=== PATIENT | male | born 1970 | race Caucasian/White ===

== ENCOUNTER 2017-08-28 05:34 | Emergency (ER) | payer BC ==
[~2017-08-28] VITALS: Ht 182.9 cm; Wt 95.0 kg
[2017-08-28 05:37] VITALS: BP 156/73; PULSE 62; RESP 16; TEMP 97.7; O2SAT 99
[2017-08-28] MEDS ORDERED: SIMV20TA PO (06:04)
[2017-08-28] MEDS ORDERED: METO-309 PO (06:04)
[2017-08-28] MEDS ORDERED: TELM40 PO (06:04)
[2017-08-28] MEDS ORDERED: NEXI40CA PO (06:05)
[2017-08-28] MEDS ORDERED: LEXA10TA PO (06:05)
[2017-08-28] MEDS ORDERED: SODIUM CHLOR 0.9% 1000 ML INJ 1,000 ML IV ONE (07:00)
[2017-08-28] MEDS ORDERED: KETOROLAC TROMETHAMINE 30 MG/ML (IVP) VIAL IV PUSH ONE (07:00)
[2017-08-28 07:23] LABS: BILIRUBIN, URINE NEG (NEG); BLOOD, URINE MOD (NEG); GLUCOSE,URINE NEG (NEG); KETONE, URINE NEG (NEG); MUCUS URINE MOD /lpf (OCC); NITRITE,URINE NEG (NEG); URINE COLOR YELLOW (YELLW/STRAW); URINE LEUKOCYTE ESTERASE NEG (NEG)
--- NOTE | 2017-08-28 07:23 | PD ---
HPI Chief Complaint: Flank/Kidney Pain Time Seen by Provider: 06:01 Travel History International Travel<30 days: No Contact w/Intl Traveler<30days: No Traveled to known affect area: No History of Present Illness HPI The patient is a 47 year old male who presents to the [facility] emergency department with a history of right flank pain first occurred 2 nights ago. He reports that it woke him from sound sleep and then resolved after 3 hours. This evening again at 12:30 AM he awoke from sound sleep with the same pain on the right side. He reports that it feels like he has a stitch in his side. He reports that the pain is been constant since 1230. He denies having any nausea , vomiting, or diarrhea associated with this. He last moved his bowels today. He denies having any blood in his stool or black or tarry stools. He denies having any dysuria, hematuria, urinary urgency, or frequency. He denies any prior history of kidney stones. He denies having any radiation of the pain. The patient is visiting from out of town. The patient incidentally reports a nearly 100 pound weight loss since April. The patient denies having any fatty food intolerance. He denies having any abdominal pain. He reports that his last meal was at 6:30 PM. On review Review of systems otherwise, the patient denies having any known recent fevers, cough or congestion, neck pain, chest pain, shortness of breath, abdominal pain, or neurologic symptoms. [facility] Past Medical History Narrative Medical The patient's past medical history is significant for hypertension. Past Surgical History Narrative Surgical The patient's past surgical history is unremarkable. Social History Alcohol Use: No Tobacco Use: No Substance Use: No Allergies-Medications (Allergen,Severity, Reaction): Coded Allergies: No Known Allergies (Unverified , 08/28/17) Reported Meds & Prescriptions Reported Meds & Active Scripts Active Reported Nexium (Esomeprazole DR) 40 Mg Capdr 40 Mg PO DAILY Lexapro (Escitalopram Oxalate) 10 Mg Tab 10 Mg PO DAILY Simvastatin 20 Mg Tab 20 Mg PO DAILY Micardis (Telmisartan) 40 Mg Tab 40 Mg PO DAILY Lopressor (Metoprolol Tartrate) 50 Mg Tab 50 Mg PO BID Review of Systems Except as stated in HPI: all other systems reviewed are Neg General / Constitutional: No: Fever Eyes: No: Visual changes HENT: No: Headaches Cardiovascular: No: Chest Pain or Discomfort Respiratory: No: Shortness of Breath Gastrointestinal: No: Abdominal Pain Genitourinary: Positive: Flank Pain, No: Dysuria Musculoskeletal: No: Pain Skin: No Rash Neurologic: No: Weakness Psychiatric: No: Depression Endocrine: No: Polydipsia Hematologic/Lymphatic: No: Easy Bruising Physical Exam Narrative General: The patient is a well-developed well-nourished male no acute distress. Head and Neck exam: Head is normocephalic atraumatic. Eyes: EOMI, pupils are equal round and reactive to light. Nose: Midline septum with pink mucous membranes Mouth: Dentition unremarkable. Moist mucus membranes. Posterior oropharynx is not erythematous. No tonsillar hypertrophy. Uvula midline. Airway patent. Neck: No palpable lymphadenopathy. No nuchal rigidity. No thyromegaly. Cardiovascular: Regular rate and rhythm without murmurs, gallops, or rubs. Lungs: Clear to auscultation bilaterally. No wheezes, rhonchi, or rales. Abdomen: Soft, without tenderness to palpation in all 4 quadrants of the abdomen. No guarding, rebound, or rigidity. Normal bowel sounds are audible. No tenderness on palpation of McBurney's point. Negative Coy sign. Urphys sign. Extremities: No clubbing, cyanosis, or edema. 2+ pulses in all 4 extremities. Back: No spinous process tenderness to palpation. Right-sided CVA tenderness on palpation. Neurologic Exam: Grossly nonfocal. Skin Exam: No rash noted. Intact skin that is warm and dry. Data Data Last Documented VS Vital Signs Date Time Temp Pulse Resp B/P (MAP) Pulse Ox O2 Delivery O2 Flow Rate FiO2 08/28/17 05:37 97.7 62 16 156/73 (100) 99 Orders Orders Complete Blood Count With Diff (08/28/17 06:21) Comprehensive Metabolic Panel (08/28/17 06:21) Lipase (08/28/17 06:21) Urinalysis - C+S If Indicated (08/28/17 06:21) Magnesium (Mg) (08/28/17 06:21) Iv Access Insert/Monitor (08/28/17 06:21) Ecg Monitoring (08/28/17 06:21) Oximetry (08/28/17 06:21) Ct Abd/Pel W/O Iv Contrast (08/28/17 06:54) Sodium Chlor 0.9% 1000 Ml Inj (Ns 1000 M (08/28/17 07:00) Ketorolac Inj (Toradol Inj) (08/28/17 07:00) Labs Laboratory Tests Test 08/28/17 06:30 White Blood Count 7.6 TH/MM3 Red Blood Count 4.13 MIL/MM3 Hemoglobin 11.3 GM/DL Hematocrit 34.3 % Mean Corpuscular Volume 83.0 FL Mean Corpuscular Hemoglobin 27.3 PG Mean Corpuscular Hemoglobin Concent 32.9 % Red Cell Distribution Width 15.9 % Platelet Count 241 TH/MM3 Mean Platelet Volume 8.8 FL Neutrophils (%) (Auto) 50.7 % Lymphocytes (%) (Auto) 38.3 % Monocytes (%) (Auto) 8.7 % Eosinophils (%) (Auto) 1.6 % Basophils (%) (Auto) 0.7 % Neutrophils # (Auto) 3.9 TH/MM3 Lymphocytes # (Auto) 2.9 TH/MM3 Monocytes # (Auto) 0.7 TH/MM3 Eosinophils # (Auto) 0.1 TH/MM3 Basophils # (Auto) 0.1 TH/MM3 CBC Comment DIFF FINAL Differential Comment Urine Color YELLOW Urine Turbidity HAZY Urine pH 5.0 Urine Specific [place] 1.030 Urine Protein 30 mg/dL Urine Glucose (UA) NEG mg/dL Urine Ketones NEG mg/dL Urine Occult Blood MOD Urine Nitrite NEG Urine Bilirubin NEG Urine Urobilinogen 4.0 OR GREATER mg/dL Urine Leukocyte Esterase NEG Urine RBC 65 /hpf Urine WBC 1 /hpf Urine Mucus MOD /lpf Microscopic Urinalysis Comment CULT NOT INDICATED Blood Urea Nitrogen 9 MG/DL Creatinine 0.85 MG/DL Random Glucose 108 MG/DL Total Protein 7.0 GM/DL Albumin 3.4 GM/DL Calcium Level 8.4 MG/DL Magnesium Level 2.2 MG/DL Alkaline Phosphatase 70 U/L Aspartate Amino Transf (AST/SGOT) 27 U/L Alanine Aminotransferase (ALT/SGPT) 20 U/L Total Bilirubin 0.2 MG/DL Sodium Level 144 MEQ/L Potassium Level 3.5 MEQ/L Chloride Level 111 MEQ/L Carbon Dioxide Level 23.7 MEQ/L Anion Gap 9 MEQ/L Estimat Glomerular Filtration Rate 96 ML/MIN Lipase 139 U/L MDM Medical Decision Making Medical Screen Exam Complete: Yes Emergency Medical Condition: Yes Medical Record Reviewed: Yes Differential Diagnosis Kidney stone, versus pyelonephritis, versus musculoskeletal strain Narrative Course During the course of the patient's emergency department visit, the patient's history, examination, and differential diagnosis were reviewed with the patient. The patient was placed on a radiation monitor with oximetry and frequent blood pressure monitoring. The patient had IV access obtained and blood work sent for analysis. The patient was initially provided Normal saline 1 L IV fluid bolus, Toradol 15 mg IV for pain. The patient's laboratory studies were reviewed and remarkable for 08/28/17 06:30 Total Protein 7.0, Albumin 3.4, Calcium Level 8.4 L, Magnesium Level 2.2, Alkaline Phosphatase 70, Aspartate Amino Transf (AST/SGOT) 27, Alanine Aminotransferase (ALT/SGPT) 20, Total Bilirubin 0.2 Urinalysis shows moderate occult blood, 30 protein, 4 urobilinogen, 65 RBCs, this is suspicious for an underlying kidney stone. The patient on reexamination reports improvement in his pain. The patient CT scan of the abdomen and pelvis was pending at the conclusion of my shift. The patient's case was checked out to the oncoming emergency physician to disposition the patient based on the conclusion of his workup. Diagnosis Primary Impression: Right flank pain Medina Coronel MD Aug 28, 2017 07:23
--- NOTE | 2017-08-28 08:01 | RADRPT ---
EXAM DATE: 08/28/2017 7:54 AM EDT AGE/SEX: 47 years / Male INDICATIONS: Right flank pain for two days. CLINICAL DATA: This is the patient's initial encounter. Patient reports that signs and symptoms have been present for 2 days and indicates a pain score of 6/10. MEDICAL/SURGICAL HISTORY: Hypertension. None. RADIATION DOSE: 18.42 CTDI (mGy) COMPARISON: No prior exams available for comparison. No external comparison. TECHNIQUE: Multiple contiguous axial images were obtained through the abdomen. Images were obtained using multiple row detector helical technique. Using automated exposure control and adjustment of the mA and/or kV according to patient size, radiation dose was kept as low as reasonably achievable to o btain optimal diagnostic quality images. DICOM format image data is available electronically for rev iew and comparison. FINDINGS: LOWER LUNGS: The visualized lower lungs are clear. LIVER: The liver has a homogeneous density without space-occupying lesion. There is no dilation of t he biliary tree. SPLEEN: Homogeneous density without enlargement. PANCREAS: Unremarkable without mass or calcification. KIDNEYS: There is moderate right-sided hydronephrosis and hydroureter extending to a 7 x 5 mm UVJ ca lcified calculus. No additional radiopaque renal calculi are demonstrated. There is a 2.4 cm cyst in the superior pole the left kidney. ADRENAL GLANDS: Unremarkable. AORTA: Mis-aneurysmal. BOWEL/MESENTERY: Mild sigmoid diverticulosis. Bowel otherwise appears unremarkable without evidence for obstruction. No free fluid or drainable fluid collections. No free air. ABDOMINAL WALL: Intact. RETROPERITONEUM: No evidence of adenopathy in the retrocrural, para-aortic, or deep pelvic regions. BLADDER: No bladder calculi. REPRODUCTIVE: No abnormal masses or calcifications seen. BONY STRUCTURES: Mild degenerative spondylosis of the lower lumbar spine. CONCLUSION: 1. 7 x 5 mm right UVJ calcified calculus with resultant moderate right-sided hydroureteronephrosis. Electronically signed by: Salvatore Cruz MD 08/28/2017 8:00 AM EDT
[2017-08-28 08:22] LABS: AUTOMATED NEUTROPHIL # 9.6 TH/MM3 (1.8-7.7); BASOPHIL # 0.1 TH/MM3 (0-0.2); BASOPHIL % 0.4 % (0.0-2.0); EOSINOPHIL # 0.1 TH/MM3 (0-0.4); EOSINOPHIL % 0.9 % (0.0-4.0); HEMOGLOBIN 13.6 GM/DL (13.0-17.0); LYMPH % 10.9 % (9.0-44.0); LYMPHOCYTE # 1.3 TH/MM3 (1.0-4.8); MEAN CELL VOLUME 89.4 FL (80.0-100.0); MEAN CORPUSCULAR HEMOGLOBIN 29.6 PG (27.0-34.0); MEAN CORPUSCULAR HGB CONC 33.1 % (32.0-36.0); MEAN PLATELET VOLUME 8.5 FL (7.0-11.0); MONO % 5.9 % (0.0-8.0); MONOCYTE # 0.7 TH/MM3 (0-0.9); NEUT % 81.9 % (16.0-70.0); PLATELET COUNT 237 TH/MM3 (150-450); RED BLOOD COUNT 4.59 MIL/MM3 (4.50-5.90); RED CELL DISTRIBUTION WIDTH 13.2 % (11.6-17.2); WHITE BLOOD COUNT 11.8 TH/MM3 (4.0-11.0)
[2017-08-28] MEDS ORDERED: TAMS5CAP PO (08:26)
[2017-08-28] MEDS ORDERED: PERC5TAB12 PO (08:26)
[2017-08-28] MEDS ORDERED: IBUP-232 PO (08:26)
--- NOTE | 2017-08-28 08:26 | PD ---
Physical Exam Date Seen by Provider: Aug 28, 2017 Data Data Last Documented VS Vital Signs Date Time Temp Pulse Resp B/P (MAP) Pulse Ox O2 Delivery O2 Flow Rate FiO2 08/28/17 05:37 97.7 62 16 156/73 (100) 99 Orders Orders Complete Blood Count With Diff (08/28/17 06:21) Comprehensive Metabolic Panel (08/28/17 06:21) Lipase (08/28/17 06:21) Urinalysis - C+S If Indicated (08/28/17 06:21) Magnesium (Mg) (08/28/17 06:21) Iv Access Insert/Monitor (08/28/17 06:21) Ecg Monitoring (08/28/17 06:21) Oximetry (08/28/17 06:21) Ct Abd/Pel W/O Iv Contrast (08/28/17 06:54) Sodium Chlor 0.9% 1000 Ml Inj (Ns 1000 M (08/28/17 07:00) Ketorolac Inj (Toradol Inj) (08/28/17 07:00) Complete Blood Count With Diff (08/28/17 08:01) Comprehensive Metabolic Panel (08/28/17 08:01) Strain Urine PRN (08/28/17 08:23) Labs Laboratory Tests Test 08/28/17 06:30 White Blood Count 11.8 TH/MM3 Red Blood Count 4.59 MIL/MM3 Hemoglobin 13.6 GM/DL Hematocrit 41.0 % Mean Corpuscular Volume 89.4 FL Mean Corpuscular Hemoglobin 29.6 PG Mean Corpuscular Hemoglobin Concent 33.1 % Red Cell Distribution Width 13.2 % Platelet Count 237 TH/MM3 Mean Platelet Volume 8.5 FL Neutrophils (%) (Auto) 81.9 % Lymphocytes (%) (Auto) 10.9 % Monocytes (%) (Auto) 5.9 % Eosinophils (%) (Auto) 0.9 % Basophils (%) (Auto) 0.4 % Neutrophils # (Auto) 9.6 TH/MM3 Lymphocytes # (Auto) 1.3 TH/MM3 Monocytes # (Auto) 0.7 TH/MM3 Eosinophils # (Auto) 0.1 TH/MM3 Basophils # (Auto) 0.1 TH/MM3 CBC Comment DIFF FINAL Differential Comment Urine Color YELLOW Urine Turbidity HAZY Urine pH 5.0 Urine Specific [place] 1.030 Urine Protein 30 mg/dL Urine Glucose (UA) NEG mg/dL Urine Ketones NEG mg/dL Urine Occult Blood MOD Urine Nitrite NEG Urine Bilirubin NEG Urine Urobilinogen 4.0 OR GREATER mg/dL Urine Leukocyte Esterase NEG Urine RBC 65 /hpf Urine WBC 1 /hpf Urine Mucus MOD /lpf Microscopic Urinalysis Comment CULT NOT INDICATED Blood Urea Nitrogen 23 MG/DL Creatinine 1.43 MG/DL Random Glucose 107 MG/DL Total Protein 6.7 GM/DL Albumin 3.6 GM/DL Calcium Level 9.0 MG/DL Alkaline Phosphatase 57 U/L Aspartate Amino Transf (AST/SGOT) 13 U/L Alanine Aminotransferase (ALT/SGPT) 28 U/L Total Bilirubin 0.4 MG/DL Sodium Level 143 MEQ/L Potassium Level 3.8 MEQ/L Chloride Level 107 MEQ/L Carbon Dioxide Level 27.7 MEQ/L Anion Gap 8 MEQ/L Estimat Glomerular Filtration Rate 53 ML/MIN MDM Medical Record Reviewed: Yes Supervised Visit with DIMITRIS: No Narrative Course Patient was received in signout by Dr. Coronel at change of shift, patient pending lab work as well as CT the abdomen pelvis Patient is a 47-year-old male presents the emergency room with complaints of right-sided flank pain which has been intermittent in nature and has been going on for the past 2 days. Patient reports that last night, this flank pain woke him up from sleep. Patient denies any nausea or vomiting with his pain, denies any hematuria, dysuria, urinary urgency or frequency. Patient reports that he is here on vacation and is going home on . On physical exam, patient does have right-sided flank pain, overall, he is well- appearing and has relieved the pain at this time. He was given a dose of Toradol for pain which relieved his symptoms UA: Positive for moderate blood, 65 red blood cells, moderate mucus Last Impressions Abdomen/Pelvis CT 08/28/17 0654 Signed Impressions: CONCLUSION: 1. 7 x 5 mm right UVJ calcified calculus with resultant moderate right-sided h ydroureteronephrosis. CT of the abdomen pelvis shows a 7 x 5 mm right UVJ calculus with moderate right -sided hydroureteronephrosis. Patient was reevaluated, patient reports that he is feeling much better at this time. Lab work including CT the abdomen and pelvis was reviewed with him, he was given a copy of his CT scan as he will need to follow-up with the urologist at home. Discussed with patient need to strain his urine and bring his kidney stone to the urologist office for follow-up. Patient will be given a prescription for Percocet, Flomax as well as ibuprofen, he was instructed not to drive a car while taking narcotic pain medications. Signs and symptoms of when to return to the emergency room was reviewed with patient and his family in detail. CBC & BMP Diagram 08/28/17 06:30 Total Protein 6.7, Albumin 3.6, Calcium Level 9.0, Alkaline Phosphatase 57, Aspartate Amino Transf (AST/SGOT) 13 L, Alanine Aminotransferase (ALT/SGPT) 28, Total Bilirubin 0.4 Diagnosis Primary Impression: Right flank pain Additional Impressions: Renal insufficiency Kidney stone on right side Hydronephrosis Patient Instructions: General Instructions Additional Instruction: Please provide patient with a copy of their lab work and studies at discharge* * Please follow up with your primary care doctor in 2-3 days Return to the ER if symptoms worsen or progress Return to the ER as needed Please strain your urine and bring the kidney stone to your doctor's office for follow up Follow-up with a urologist Do not drive or operate heavy machinery while taking narcotic pain medications Med/Other Pt SpecificInfo: Prescription(s) given Scripts Ibuprofen (Ibuprofen) 600 Mg Tab 600 MG PO Q6H Y for Pain/Inflammation, #40 TAB 0 Refills Prov: Keila Campbell DO 08/28/17 Oxycodone-Acetaminophen (Percocet) 5-325 mg Tab 1 TAB PO Q6H Y for PAIN, #12 TAB 0 Refills Prov: Keila Campbell DO 08/28/17 Tamsulosin (Flomax) 0.4 Mg Cap 0.4 MG PO HS for Manage Prostate Problems, #10 CAP 0 Refills Prov: Keila Campbell DO 08/28/17 Disposition: 01 DISCHARGE HOME Condition: Stable Keila Campbell DO Aug 28, 2017 08:26
[2017-08-28 08:35] LABS: ALBUMIN 3.6 GM/DL (3.4-5.0); ALT (GPT) 28 U/L (12-78); AST (GOT) 13 U/L (15-37); BICARBONATE 27.7 MEQ/L (21.0-32.0); BLOOD UREA NITROGEN 23 MG/DL (7-18); CHLORIDE 107 MEQ/L (98-107); CREATININE 1.43 MG/DL (0.60-1.30); GLOMERULAR FILTRATION RATE 53 ML/MIN (>89); GLUCOSE,RANDOM 107 MG/DL (74-106); SODIUM (NA) 143 MEQ/L (136-145)
[2017-08-28 08:39] LABS: ALKALINE PHOSPHATASE 57 U/L (45-117); TOTAL BILIRUBIN ADULT 0.4 MG/DL (0.2-1.0); TOTAL PROTEIN 6.7 GM/DL (6.4-8.2)
[2017-08-28 09:01] LABS: ALBUMIN ND GM/DL (3.4-5.0); ALKALINE PHOSPHATASE ND U/L (45-117); ALT (GPT) ND U/L (12-78); AST (GOT) ND U/L (15-37); BLOOD UREA NITROGEN ND MG/DL (7-18); CALCIUM ND MG/DL (8.5-10.1); CALCIUM-PROTEIN CORRECTED ND MG/DL (8.5-10.1); CREATININE ND MG/DL (0.60-1.30); GLUCOSE,RANDOM ND MG/DL (74-106); MAGNESIUM ND MG/DL (1.5-2.5); SODIUM (NA) ND MEQ/L (136-145); TOTAL BILIRUBIN ADULT ND MG/DL (0.2-1.0); TOTAL PROTEIN ND GM/DL (6.4-8.2)
[2017-08-28 09:02] LABS: BICARBONATE ND MEQ/L (21.0-32.0); CHLORIDE ND MEQ/L (98-107)
[2017-08-28 09:03] LABS: GLOMERULAR FILTRATION RATE ND ML/MIN (>89)
[2017-08-28 09:17] VITALS: BP 140/70
== END 2017-08-28 09:27 | disposition home or self-care (01) ==
LOC: NEPC 05:34
DX: N13.2 Hydronephrosis with renal and ureteral calculous obstruction (principal); I10 Essential (primary) hypertension
CPT/HCPCS: 74176; 80053; 81001; 85025; 96361; 96374; 99284; J1885; J7030